=== PATIENT | male | born 1990 | race Caucasian/White ===

== ENCOUNTER 2017-10-17 07:20 | Emergency (ER) | payer SELFPAY ==
[2017-10-17 07:33] VITALS: BP 122/78
--- NOTE | 2017-10-17 08:31 | UC ---
Skin Complaint HPI - HPI Summary HPI Summary: 2 days of sensitive, painful, itchy pinpoint papular rash along the left abdomen. Denies any new exposures foods or medication changes. Denies any shortness of breath or fever. States he has been outside working in the yard but that he has had contact dermatitis in the past and this feels different. - History of Current Complaint Chief Complaint: UCSkin Time Seen by Provider: 10/17/17 08:00 Stated Complaint: RASH Hx Obtained From: Patient Onset/Duration: Sudden Onset, Lasting Days, Still Present Timing: Constant Onset Severity: Moderate Current Severity: Moderate Pain Intensity: 6 Pain Scale Used: 0-10 Numeric Character: Pruritus, Pain, Redness Aggravating Factor(s): Touch Alleviating Factor(s): Nothing Associated Signs & Symptoms: Positive: Rash, Tenderness. Negative: Nausea, Fever, Red Streaks - Allergy/Home Medications Allergies/Adverse Reactions: Allergies Allergy/AdvReac Type Severity Reaction Status Date / Time No Known Allergies Allergy Verified 10/17/17 07:33 Home Medications: Home Medications Ibuprofen TAB* [Advil TAB*] 600 mg PO Q6H PRN 10/17/17 [History Confirmed ] Review of Systems Constitutional: Negative Skin: Rash Respiratory: Negative Cardiovascular: Negative Gastrointestinal: Negative All Other Systems Reviewed And Are Negative: Yes PMH/Surg Hx/FS Hx/Imm Hx Previously Healthy: Yes - Surgical History Surgical History: Yes Surgery Procedure, Year, and Place: finger R - Family History Known Family History: Negative: Hypertension - Social History Alcohol Use: Occasionally Substance Use Type: Marijuana Substance Use Comment - Amount & Last Used: daily Smoking Status (MU): Heavy Every Day Tobacco Smoker Type: Cigarettes Amount Used/How Often: 1 PPD Physical Exam Triage Information Reviewed: Yes Appearance: Well-Appearing, No Pain Distress, Well-Nourished Vital Signs: Initial Vital Signs Temp 97.7 F 10/17/17 07:28 Pulse 71 10/17/17 07:28 Resp 16 10/17/17 07:28 BP 122/78 10/17/17 07:28 Pulse Ox 99 10/17/17 07:28 Vital Signs Reviewed: Yes Eyes: Positive: Conjunctiva Clear ENT: Positive: Hearing grossly normal Neck: Positive: Supple Respiratory: Positive: No respiratory distress, No accessory muscle use Cardiovascular: Positive: Pulses Normal Abdomen Description: Positive: Soft Musculoskeletal: Positive: No Edema Neurological: Positive: Alert Psychological: Positive: Age Appropriate Behavior Skin: Positive: rashes - Pinpoint papular rash measuring approximately 16 cm x 6 cm running vertically along left abdomen. Very sensitive to touch. No clear vesicles or drainage. Course/Dx - Course Course Of Treatment: GIVEN PATIENT'S DESCRIPTION OF HIS CONDITION WHICH IS CONSISTENT WITH SHINGLES WE'LL TREAT SUCH WITH VALTREX FOR ONE WEEK. APPEARANCE IS SOMEWHAT ATYPICAL THE RASH SPANS ACROSS SEVERAL DERMATOMES VERTICALLY AND IS NOT VESICULAR. HAVE ADVISED PATIENT TO SEEK FOLLOW-UP IF HE IS NOT IMPROVING EXPECTED. - Diagnoses Provider Diagnoses: DERMATITIS Discharge - Sign-Out/Discharge Documenting (check all that apply): Discharge/Admit/Transfer - Discharge Plan Condition: Stable Disposition: HOME Prescriptions: Valacyclovir HCl [Valacyclovir] 1,000 mg PO TID #21 tablet Patient Education Materials: Shingles (ED), Dermatitis (ED) Referrals: No Primary Care Phys,NOPCP [Primary Care Provider] - Additional Instructions: YOUR PRESENTATION IS CONSISTENT WITH SHINGLES ALTHOUGH THE APPEARANCE OF THE RASH IS SLIGHTLY ATYPICAL. GIVEN THE LEVEL OF YOUR DISCOMFORT AND THE TIMING WE 'LL COVER YOU FOR SHINGLES WITH VALTREX 3 TIMES A DAY FOR A WEEK. AVOID HEAT AND HOT WATER THIS WILL MAKE IT FEEL WORSE TAKE OTC ANTIHISTAMINE DAILY (CLARITIN (LORATADINE), ZYRTEC (CETIRIZINE) OR ADONAY (FEXOFENADINE) IN THE MORNING TO COVER FOR ALLERGIC COMPONENT) DO NOT SCRATCH KEEP COOL, CLEAN AND DRY OTC IBUPROFEN NEEDED FOR PAIN GIVEN CONCERN FOR SHINGLES PLEASE BE AWARE THAT IT IS A CONTAGIOUS CONDITION TO INDIVIDUALS WHO ARE UNVACCINATED (INFANTS) OR WHO HAVE NEVER HAD CHICKENPOX. CALL THE NUMBER BELOW FOR ASSISTANCE IN ESTABLISHING WITH A PCP An additional resource available to assist in finding the appropriate physician for your health care needs is the [facility] ([facility]). You may contact them by calling [phone]. - Billing Disposition and Condition Condition: STABLE Disposition: HOME
== END 2017-10-17 08:30 | disposition home or self-care (01) ==
LOC: UCEAST 07:20
DX: L30.9 Dermatitis, unspecified (principal); F17.210 Nicotine dependence, cigarettes, uncomplicated
CPT/HCPCS: 99202; G0463

== ENCOUNTER 2017-11-15 07:42 | Emergency (ER) | payer BC ==
[2017-11-15 07:59] VITALS: BP 106/75
--- NOTE | 2017-11-15 08:16 | UC ---
Skin Complaint HPI - HPI Summary HPI Summary: 1. PATIENT REMOVED A TICK FROM HIS LEFT ANTERIOR CHEST THAT 2 DAYS AGO. STATES IT WAS ATTACHED FOR MORE NO MORE THAN A FEW HOURS BUT PATIENT COMES IN TODAY BECAUSE THIS MORNING HE NOTICED THE AREA WAS RED, TENDER AND FIRM TO TOUCH. 2. ALSO COMPLAINS OF ONSET YESTERDAY OF SORE THROAT AND PAIN WITH SWALLOWING. MILD COUGH STARTING TODAY. NO FEVER, EAR PAIN, NAUSEA, VOMITING, DIARRHEA. - History of Current Complaint Chief Complaint: UCRespiratory Time Seen by Provider: 11/15/17 08:00 Stated Complaint: TICK BITE SORE THROAT Hx Obtained From: Patient Onset/Duration: Gradual Onset, Lasting Days, Still Present Timing: Constant Onset Severity: Moderate Current Severity: Moderate Pain Intensity: 0 Pain Scale Used: 0-10 Numeric Location: Discrete - LEFT CHEST Character: Pruritus, Pain, Redness, Raised Aggravating Factor(s): Touch Alleviating Factor(s): Nothing Associated Signs & Symptoms: Positive: Tenderness. Negative: Fever Related History: Insect Bite/Sting - Allergy/Home Medications Allergies/Adverse Reactions: Allergies Allergy/AdvReac Type Severity Reaction Status Date / Time No Known Allergies Allergy Verified 11/15/17 07:59 Review of Systems Constitutional: Negative Skin: Other - REDNESS AT TICK BITE SITE ENT: Sore Throat Respiratory: Cough Cardiovascular: Negative Gastrointestinal: Negative Musculoskeletal: Negative Neurological: Negative All Other Systems Reviewed And Are Negative: Yes PMH/Surg Hx/FS Hx/Imm Hx Previously Healthy: Yes - Surgical History Surgical History: Yes Surgery Procedure, Year, and Place: finger R - Family History Known Family History: Negative: Hypertension - Social History Alcohol Use: Rare Substance Use Type: Marijuana Substance Use Comment - Amount & Last Used: daily Smoking Status (MU): Heavy Every Day Tobacco Smoker Type: Cigarettes Amount Used/How Often: 1 PPD Physical Exam Triage Information Reviewed: Yes Appearance: Well-Appearing, No Pain Distress, Well-Nourished Vital Signs: Initial Vital Signs Temp 98.1 F 11/15/17 07:54 Pulse 70 11/15/17 07:54 Resp 12 11/15/17 07:54 BP 106/75 11/15/17 07:54 Pulse Ox 99 11/15/17 07:54 Vital Signs Reviewed: Yes Eyes: Positive: Conjunctiva Clear ENT: Positive: Hearing grossly normal, Pharyngeal erythema, TMs normal. Negative: Tonsillar swelling, Tonsillar exudate Neck: Positive: Supple, Nontender, No Lymphadenopathy Respiratory Exam: Normal Cardiovascular Exam: Normal Abdomen Description: Positive: Soft Musculoskeletal: Positive: No Edema Neurological: Positive: Alert Psychological: Positive: Age Appropriate Behavior Skin: Positive: Other - 6CM X 2CM IRREGULAR, INDURATED AREA OF ERYTHEMA AT TICK BITE SITE LEFT ANTERIOR CHEST. 1CM SATELLITE AREAS OF REDNESS X 2. TTP Diagnostics - Laboratory Diagnostic Studies Completed/Ordered: STREP NEG Course/Dx - Diagnoses Provider Diagnoses: 1. CELLULITIS. 2. TICK BITE. 3. ACUTE PHARYNGITIS Discharge - Sign-Out/Discharge Documenting (check all that apply): Discharge/Admit/Transfer - Discharge Plan Condition: Stable Disposition: HOME Prescriptions: Cephalexin CAP* [Keflex 500 CAP*] 1,000 mg PO BID #40 cap Patient Education Materials: Cellulitis (ED), Pharyngitis (ED), Tick Bite (ED) Referrals: No Primary Care Phys,NOPCP [Primary Care Provider] - Additional Instructions: THE REDNESS SURROUNDING THE TICK BITE SITE IS CONSISTENT WITH A CELLULITIS. WILL COVER WITH ANTIBIOTICS. OKAY TO USE OTC HYDROCORTISONE 2-3 TIMES PER DAY TOPICALLY TO HELP WITH ITCHING. KEEP COOL, CLEAN AND DRY. The Infectious Disease Society of [place] (IDSA) does not generally recommend antimicrobial prophylaxis for prevention of Lyme disease after a recognized tick bite. However, in areas that are highly endemic for Lyme disease, a single dose of doxycycline may be offered to adult patients (200 mg) who are not and to children older than 8 years of age (4 mg/kg up to a maximum dose of 200 mg) when all of the following circumstances exist: CRITERIA FOR RECEIVING PROPHYLACTIC TREATMENT FOR LYME DISEASE 1) TICK ATTACHED FOR AT LEAST 36 HRS 2) TICK IS AN ADULT OR [place] DEER TICK 3) YOU LIVE IN AN AREA WHERE LYME DISEASE IS PREVALENT (i.e., [place], [place], [place], [place], [place] , [place], [place], [place], [place], [place], [place], [place], [place], [place]) 4) YOU HAVE NO CONTRAINDICATION TO THE MEDICATION (DOXYCYCLINE) 5) PROPHYLAXIS IS BEGUN WITHIN 72 HRS OF TICK REMOVAL SINCE YOU DO NOT MEET ALL THESE CRITERIA THERE IS NO NEED TO GIVE YOU PROPHYLACTIC ANTIBIOTICS. YOUR CHANCES OF DEVELOPING LYME DISEASE ARE EXTREMELY SMALL. BE VIGILANT OF YOUR SYMPTOMS AND DON'T HESITATE TO GET SEEN AGAIN IF YOU DEVELOP UNEXPLAINED FEVER, HEADACHE, JOINT PAIN, BODY ACHES, RASH OR ANY OTHER CONCERNING SYMPTOMS. Antibiotic treatment following a tick bite is not recommended as a means to prevent anaplasmosis, babesiosis, ehrlichiosis, or [place] spotted fever. There is no evidence this practice is effective, and it may simply delay onset of disease. Instead, persons who experience a tick bite should be alert for symptoms suggestive of tickborne illness and consult a physician if fever, rash, or other symptoms of concern develop. STREP TEST NEGATIVE. YOUR COUGH/SORE THROAT SYMPTOMS ARE LIKELY VIRALLY MEDIATED AND SHOULD RESOLVE ON THEIR OWN WITH TIME. NO INDICATION FOR ANTIBIOTICS AT PRESENT. REST, HYDRATE, OTC MEDS NEEDED. SEEK FOLLOW-UP IF YOU ARE NOT IMPROVING OVER THE NEXT 1-2 WEEKS. CALL THE NUMBER BELOW FOR ASSISTANCE IN ESTABLISHING WITH A PCP An additional resource available to assist in finding the appropriate physician for your health care needs is the [facility] ([facility]). You may contact them by calling [phone]. - Billing Disposition and Condition Condition: STABLE Disposition: HOME
== END 2017-11-15 08:27 | disposition home or self-care (01) ==
LOC: UCEAST 07:42
DX: S20.362A Insect bite (nonvenomous) of left front wall of thorax, initial encounter (principal); L03.313 Cellulitis of chest wall; W57.XXXA Bitten or stung by nonvenomous insect and other nonvenomous arthropods, initial encounter; Y93.9 Activity, unspecified; Y92.9 Unspecified place or not applicable; J02.9 Acute pharyngitis, unspecified; F17.210 Nicotine dependence, cigarettes, uncomplicated
CPT/HCPCS: 87651; 99212; G0463

== ENCOUNTER 2018-09-13 08:22 | Emergency (ER) | payer BC ==
[2018-09-13 08:33] VITALS: BP 145/89
[2018-09-13] MEDS ORDERED: HYDROcodone/ACETAMIN 5-325 MG* 1 TAB PO ONE (08:49)
[2018-09-13] MEDS ORDERED: ceFAZolin VIAL(*) 2 GM in NS 0.9% 100 ML* 100 ML IVPB ONE (08:49)
[2018-09-13] MEDS ORDERED: ceFAZolin 500 MG VIAL(*) 500 MG VIAL IM ONE (08:57)
[2018-09-13] MEDS ORDERED: ceFAZolin VIAL(*) VIAL ONE (09:03)
--- NOTE | 2018-09-13 09:03 | ED ---
Skin Complaint - HPI Summary HPI Summary: 28 yo WM h/o hidradenitis suppurrativa p/w recurrent B/L groin extremely tender nodules x 1 week ,so tender and painful that it is hard for him to work. 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 - History of Current Complaint Chief Complaint: UCSkin Time Seen by Provider: 09/13/18 08:40 Stated Complaint: PERSONAL Hx Obtained From: Patient Skin Exposure Onset/Duration: Days Ago Timing: Constant Onset Severity: Moderate Pain Intensity: 7 - Allergy/Home Medications Allergies/Adverse Reactions: Allergies Allergy/AdvReac Type Severity Reaction Status Date / Time No Known Allergies Allergy Verified 09/13/18 08:33 PMH/Surg Hx/FS Hx/Imm Hx Previously Healthy: Yes Endocrine/Hematology History: Denies: Hx Anticoagulant Therapy, Hx Blood Disorders, Hx Diabetes Cardiovascular History: Denies: Hx Hypertension, Other Cardiovascular Problems/Disorders Respiratory History: Denies: Hx Asthma Musculoskeletal History: Denies: Hx Arthritis - Surgical History Surgery Procedure, Year, and Place: finger R Infectious Disease History: No Infectious Disease History: Denies: Traveled Outside the [place] in Last 30 Days - Family History Known Family History: Positive: None Negative: Hypertension - Social History Alcohol Use: Weekly Substance Use Type: Reports: Marijuana Substance Use Comment - Amount & Last Used: daily Smoking Status (MU): Heavy Every Day Tobacco Smoker Type: Cigarettes Amount Used/How Often: 3/4 PPD Review of Systems - ROS Summary Review of Systems Summary: Constitutional: Negative Skin: recurrent groin absecesses Eyes: Negative ENT: Negative Cardiovascular: Negative Respiratory: Negative Gastrointestinal: Negative Genitourinary: Negative Musculoskeletal: Negative Neurological: Negative Psychological: Normal All Other Systems Reviewed And Are Negative: Yes All Other Systems Reviewed And Are Negative: Yes Physical Exam - Summary Physical Exam Summary: Vital Signs Reviewed: Yes Appearance: Positive: No Pain Distress Skin: Positive: Warm, tender,erythematous hard mutilple tender nodules 1-3cm in B/L groin, few barely fluctuant Head/Face: Positive: Normal Head/Face Inspection Eyes: Positive: Normal ENT: Positive: Normal ENT inspection Neck: Positive: Supple Respiratory/Lung Sounds: Positive: Clear to Auscultation. Negative: Rales, Rhonchi, Wheezes Cardiovascular: Positive: Normal, RRR, S1, S2 Abdomen Description: Positive: Nontender Musculoskeletal: Positive: Normal Neurological: Positive: Normal, CN Intact II-III Psychiatric: Positive: Normal, Affect/Mood Appropriate Vital Signs On Initial Exam: Initial Vitals Temp Pulse Resp BP Pulse Ox 36.8 C 86 18 145/89 99 09/13/18 08:28 09/13/18 08:28 09/13/18 08:28 09/13/18 08:28 09/13/18 08:28 Diagnostics - Vital Signs Vital Signs Temp Pulse Resp BP Pulse Ox 09/13/18 08:28 36.8 C 86 18 145/89 99 - Laboratory Lab Statement: Any lab studies that have been ordered have been reviewed, and results considered in the medical decision making process. Course/Dx - Differential Diagnoses - Skin Complaint Differential Diagnoses: Abscess - Diagnoses Provider Diagnoses: Hidradenitis suppurativa Discharge - Sign-Out/Discharge Documenting (check all that apply): Patient Departure All imaging exams completed and their final reports reviewed: Yes - Discharge Plan Condition: Stable Disposition: HOME Referrals: No Primary Care Phys,NOPCP [Primary Care Provider] - - Billing Disposition and Condition Condition: STABLE Disposition: Home
== END 2018-09-13 09:55 | disposition home or self-care (01) ==
LOC: UCEAST 08:22
DX: L73.2 Hidradenitis suppurativa (principal); F17.210 Nicotine dependence, cigarettes, uncomplicated
CPT/HCPCS: 96372; 99212; G0463; J0690